=== PATIENT | male | born 1985 | race Caucasian/White ===

== ENCOUNTER 2018-10-21 11:58 | Inpatient (IN) ==
[2018-10-21] MEDS ORDERED: LOPRESSOR IV ONE (12:11)
[2018-10-21] MEDS ORDERED: ATIVAN ONE (12:20)
[2018-10-21] MEDS ORDERED: ATIVAN IV ONE (12:25)
[2018-10-21] MEDS ORDERED: MAGNESIUM SULFATE 4 GM/S.W.I. 4 GM/100 ML IVPB IV ONE (12:25)
[2018-10-21] MEDS ORDERED: M.V.I.-12 10 ML, FOLIC ACID 1 MG, MAGNESIUM SULFATE 1 GM, THIAMINE 100 MG in NS 1,000 ML IV ONE (12:41)
[2018-10-21 12:52] LABS: BASO# 0.08 X1000 (0.0-0.2); BASO% 0.4 % (0.0-0.8); EOS# 0.01 X1000 (0.0-0.7); EOS% 0.1 % (0.0-10.0); HEMATOCRIT 48.2 % (42.0-52.0); HEMOGLOBIN 16.9 g/dL (14.0-18.0); IMM GRAN# 0.06 X1000 (0.0-0.04); IMM GRAN% 0.3 % (0.0-0.5); LYMPH# 1.56 X1000 (1.2-3.4); LYMPH% 8.6 % (20.5-51.1); MCH 31.1 PG (27-31); MCHC 35.1 g/dL (33-37); MCV 88.6 FL (81-99); MONO# 1.54 X1000 (0.11-0.59); MONO% 8.5 % (1.7-9.3); MPV 10.9 FL (7.4-10.4); NEUT# 14.85 X1000 (1.4-6.5); NEUT% 82.1 % (42.2-75.2); PLT 75 X1000 (130-400); RBC 5.44 XMIL (4.7-6.1); RDW 12.4 % (11.5-14.5)
[2018-10-21 12:57] LABS: ESTIMATED GFR > 60
[2018-10-21 13:01] LABS: SODIUM 135 mmol/L (136-145)
[2018-10-21 13:02] LABS: AGAP 35; ALB/GLOB RATIO 1.7; ALBUMIN 5.4 g/dL (3.5-5.0); ALKALINE PHOSPHATASE 98 U/L (32-122); BUN 8 mg/dL (8-22); CALCIUM 10.2 mg/dL (8.8-10.2); CHLORIDE 89 mmol/L (98-107); COSMO 278; CREATININE 1.2 mg/dL (0.7-1.2); GLUCOSE 262 mg/dL (70-104); GOT 507 U/L (10-34); GPT 511 U/L (10-44); MAGNESIUM 2.5 mg/dL (1.5-2.7); POTASSIUM 3.2 mmol/L (3.5-5.1); TCO2 11 mmol/L (25-35); TOTAL BILIRUBIN 1.44 mg/dL (0.20-1.00); TOTAL PROTEIN 8.5 g/dL (6.3-8.3)
[2018-10-21 13:06] LABS: T4 5.29 ug/dL (4.60-12.00); TSH 0.78 uIUmL (0.27-4.20)
--- NOTE | 2018-10-21 13:09 | Diag Imaging Result Doc PS360 ---
EXAM: SHOULDER-RIGHT INDICATION: seizure TECHNIQUE: 2 views COMPARISON: None. FINDINGS: There is a chronic appearing deformity at the greater tuberosity of the proximal humerus that may have been from previous dislocations. There are vague soft tissue heterotopic calcifications adjacent to this. There is no definite acute fracture, dislocation, or intrinsic osseous lesion, otherwise. IMPRESSION: Chronic appearing changes as described. No definite acute pathology by plain radiograph. Electronically signed by Trey Castaneda 10/21/2018 1:07 PM
--- NOTE | 2018-10-21 13:11 | Diag Imaging Result Doc PS360 ---
EXAM: ELBOW 2 VIEWS RIGHT INDICATION: seizure TECHNIQUE: 2 views COMPARISON: None. FINDINGS: There is no discrete fracture, dislocation, or significant intrinsic osseous lesion. The visualized joint spaces are essentially unremarkable. There is mild soft tissue edema overlying the olecranon process. IMPRESSION: Mild soft tissue edema but no definite acute osseous abnormality. Electronically signed by Trey Castaneda 10/21/2018 1:08 PM
[2018-10-21] MEDS ORDERED: ROCEPHIN 1 GM in NS 50 ML IV ONE (13:22)
[2018-10-21] MEDS ORDERED: NS 1,000 ML IV ONE (13:23)
[2018-10-21 13:35] LABS: URINE SOURCE CLEAN CATCH
[2018-10-21 13:48] LABS: BILIRUBIN URINE NEGATIVE (NEGATIVE); BLOOD URINE LARGE (NEGATIVE); COLOR YELLOW; GLUCOSE URINE TRACE mg/dL (NEGATIVE); KETONE URINE 60 mg/dL (NEGATIVE); LEUKOCYTES URINE NEGATIVE (NEGATIVE); NITRITE URINE NEGATIVE (NEGATIVE); PROTEIN URINE 300 mg/dL (NEGATIVE); SP GRAVITY URINE 1.015; TURBIDITY URINE CLEAR (CLEAR); UROBILINOGEN URINE NORMAL (NORMAL)
[2018-10-21 13:50] LABS: UR EPITHELIAL CELLS <10 /HPF (<10); URINE BACTERIA NEGATIVE /HPF; URINE RBC <10 /HPF (<10); URINE WBC <10 /HPF (<10)
[2018-10-21 13:54] LABS: BLOOD TYPE ARTERIAL; SAMPLE BLOOD
[2018-10-21 13:55] LABS: ALLEN TEST YES; BE -6.4 mmoll (-3.0-3.0); HCO3-(ACT) 19.9 mmoll (20.0-26.0); METHB 1.1 % (0.0-1.5); O2HB 96.7 % (95.0-99.0); PCO2(98.6) 29 mmHg (35-45); PO2(98.6) 106 mmHg (60-100); SAO2 99.6 % (95.0-100.0); THB 16.1 g/dL (11.5-17.4); pH(98.6) 7.38 (7.35-7.45)
[2018-10-21 13:56] LABS: MODALITY CANNULA
[2018-10-21 14:04] LABS: UR AMPHETAMINES QUAL NONE DETECTED (NONE DETECT); UR BARBITUATES QUAL NONE DETECTED (NONE DETECT); UR BENZODIAZEPIN QUAL NONE DETECTED (NONE DETECT); UR CANNABINOIDS QUAL NONE DETECTED (NONE DETECT); UR COCAINE QUAL NONE DETECTED (NONE DETECT); UR METHADONE QUAL NONE DETECTED (NONE DETECT); UR OPIATES QUAL NONE DETECTED (NONE DETECT); UR OXYCODONE QUAL NONE DETECTED (NONE DETECT); UR PCP QUAL NONE DETECTED (NONE DETECT)
--- NOTE | 2018-10-21 15:25 | PROVIDER DOCUMENTATION ---
This chart was entered by Tana Bernal Scribe, acting as scribe for Tiffanie Carmichael MD. HPI-Neurological Disorder - General Chief Complaint: Seizure Stated Complaint: AMS Time Seen by Provider: 10/21/18 12:06 Source: patient, EMS Unable to obtain history due to:: altered Allergies/Adverse Reactions: Patient Allergies Allergy/AdvReac Type Severity Reaction Status Date / Time No Known Allergies Allergy Verified 10/21/18 12:33 Home Medications: Home Medication List Medication Instructions Recorded Confirmed Last Taken Type NK [No Home Medications] 10/21/18 10/21/18 Unknown History - History of Present Illness-Neuro Nature of Presenting Problem: 32 yowm presents to the ed via ems from a liquor store. pt admits to a daily drinker and sts has no hx of seizures. pt has new onset seizure while at the liquor store and 911 was called by vika. pt had his second seizure while in the er with nurse and dr at bedside. pt c/o rt shoulder pain Onset/Duration: reports: just prior to arrival Timing: reports: improving Context: reports: seizure activity Character of Altered Mental Status: reports: disoriented, confused, seizure activity Any recent trauma/injury?: reports: minor, other (to tongue/rt shoulder and elbow) Cognitive Baseline: alert, oriented x3 Gait Baseline: walks without assistance Associated Symptoms: reports: confusion, fatigue, fever/chills, loss of consciousness, nausea, diaphoretic, seizures, sleepy. 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) Witnessed seizure?: Yes (employee of [employer]) How many seizure episodes?: 2 (x1 at store and x1 in ed) Episode Frequency: no prior episodes Status Epilepticus: No Preceding symptoms/context:: recent alcohol or drug use (drinks daily sts did n ot have alcohol yesterday) Character of Seizure: reports: generalized shaking all over Post-ictal Symptoms: reports: confusion Seizure related injury: bit tongue Review of Systems - Adult - REVIEW OF SYSTEMS - ADULT ROS:: limited per condition Constitutional: reports: see HPI, chills, fever Eyes: reports: no symptoms reported Ears, Nose, Mouth & Throat: reports: no symptoms reported Cardiovascular: denies: chest pain, edema Respiratory: denies: shortness of breath, wheezing Gastrointestinal: reports: see HPI, nausea. denies: vomiting Genitourinary: reports: no symptoms reported Musculoskeletal: reports: no symptoms reported Integumentary: reports: no symptoms reported Neurological: reports: see HPI, seizure Psychiatric: reports: see HPI, alcohol/drug dependence Endocrine: reports: no symptoms reported Hematologic/Lymphatic: reports: no symptoms reported Allergic/Immunologic: reports: no symptoms reported All Other Systems: Reviewed and Negative Past History - Adult - PAST MEDICAL HISTORY-ADULT Review of Records: reports: Old Records Reviewed, Nursing Assessment Review, Medications Reviewed, Social history reviewed & non-contributory. Major Childhood Illnesses: reports: denies history Cardiovascular: reports: denies history Respiratory: reports: denies history Gastrointestinal: reports: denies history Obstetrical/Gynecological: reports: denies history Genitourinary: reports: denies history Musculoskeletal: reports: denies history Hand Dominance: Right Handed Neurological: reports: denies history Psychiatric: reports: denies history Endocrine/Immune: reports: denies history Other Conditions: reports: denies history - PRIOR SURGERIES/PROCEDURES Surgical/Procedure History: reports: reviewed, not pertinent - IMMUNIZATION STATUS Childhood Immunizations: See Nurse Assessment Flu Vaccine: See Nurse Assessment - FAMILY HISTORY Family History: reviewed, not pertinent - SOCIAL HISTORY Smoking: non-smoker Substance Use: alcohol Alcohol Use Frequency: every day Number of drinks per typical drinking period:: 5-10 drinks Living Situation: family Physical Exam- Neurological - Physical Exam-Neuro Exam Limited by: pt is postictal but improving Initial Vital Signs Reviewed: Yes (temp-100.8 HR-175 BP-154/137 RR-22 o@-95% 3LPM) General Appearance: alert, slow to respond, other (confused postictal) HENMT: moist mucous membranes, other (bit tongue during seizure activity) Head Injury: no evidence of injury Neck: non-tender, full range of motion, normal inspection Respiratory: chest non-tender, lungs clear, increased rate (22) Cardiovascular: normal peripheral pulses, tachycardia (175) Abdominal Exam: normal bowel sounds, non tender, soft Lymphatic: no adenopathy Extremity: normal range of motion, no pedal edema, no calf tenderness, normal capillary refill, tenderness (rt shoulder) 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 Neurologic: grossly normal Integumentary: normal color, abrasion(s) (rt elbow), diaphoresis Psych/Mental Status: normal mood/affect, normal thought content, normal thought process, oriented x 3 - Glascow Coma Scale Best Eye Response: (4) open spontaneously Best Verbal Response: (4) confused conversation Best Motor Response: (6) obeys commands Total Glascow Score: 14 Progress - PLAN OF CARE/RESULTS Progress/Plan/Lab Results: Vital Signs - 8 hr 10/21/18 12:24 10/21/18 13:17 10/21/18 14:33 Temperature 100.8 F H 101.0 F H 99.0 F Pulse Rate 175 H 135 H 119 H Respiratory Rate 22 24 24 Blood Pressure 154/137 162/93 151/106 O2 Sat by Pulse Oximetry 95 96 96 Laboratory Results - last 24 hr 10/21/18 10/21/18 10/21/18 12:10 12:15 12:15 WBC 18.10 H RBC 5.44 Hgb 16.9 Hct 48.2 MCV 88.6 MCH 31.1 H MCHC 35.1 RDW Std Deviation 12.4 Plt Count 75 L MPV 10.9 H Immature Gran % (Auto) 0.3 Neut % (Auto) 82.1 H Lymph % (Auto) 8.6 L [place] % (Auto) 8.5 Eos % (Auto) 0.1 Baso % (Auto) 0.4 Immature Gran # (Auto) 0.06 H Neut # (Auto) 14.85 H Lymph # (Auto) 1.56 [place] # (Auto) 1.54 H Eos # (Auto) 0.01 Baso # (Auto) 0.08 Specimen Type Sample Site pH pCO2 pO2 HCO3 Base Excess Oxyhemoglobin ABG O2 Sat (Calculated) ABG O2 Saturation ABG Carboxyhemoglobin ABG Methemoglobin Wei Test A-a O2 Difference Total Hemoglobin Lactate Liter Flow Blood Gas Modality FiO2 % Sodium Potassium Chloride Carbon Dioxide Anion Gap BUN Creatinine Estimated GFR/1.73 m2 BUN/Creatinine Ratio Glucose POC Glucose 219 H Calculated Osmolality Calcium Magnesium Total Bilirubin AST ALT Alkaline Phosphatase Total Protein Albumin Globulin Albumin/Globulin Ratio Plasma Lactate TSH Thyroxine (T4) Urine Source Urine Color Urine Turbidity Urine pH Ur Specific [place] Urine Protein Ur Glucose (Stick) Ur Ketones (Stick) Urine Blood Urine Nitrite Urine Bilirubin Urobilinogen Dipstick Urine Leukocytes Urine WBC (Auto) Urine RBC (Auto) U Epithel Cells (Auto) Urine Bacteria (Auto) Urine Opiates Screen Ur Oxycodone Screen Ur Methadone, Qual Ur Barbiturates Screen Ur Phencyclidine Scrn Ur Amphetamines Screen U Benzodiazepines Scrn Urine Cocaine Screen U Cannabinoids Screen Plasma/Serum Ethyl Alc 10/21/18 10/21/18 10/21/18 12:15 12:15 12:15 WBC RBC Hgb Hct MCV MCH MCHC RDW Std Deviation Plt Count MPV Immature Gran % (Auto) Neut % (Auto) Lymph % (Auto) [place] % (Auto) Eos % (Auto) Baso % (Auto) Immature Gran # (Auto) Neut # (Auto) Lymph # (Auto) [place] # (Auto) Eos # (Auto) Baso # (Auto) Specimen Type Sample Site pH pCO2 pO2 HCO3 Base Excess Oxyhemoglobin ABG O2 Sat (Calculated) ABG O2 Saturation ABG Carboxyhemoglobin ABG Methemoglobin Wei Test A-a O2 Difference Total Hemoglobin Lactate Liter Flow Blood Gas Modality FiO2 % Sodium 135 L Potassium 3.2 L Chloride 89 L Carbon Dioxide 11 L Anion Gap 35 BUN 8 Creatinine 1.2 Estimated GFR/1.73 m2 > 60 BUN/Creatinine Ratio 7 Glucose 262 H POC Glucose Calculated Osmolality 278 Calcium 10.2 Magnesium 2.5 Total Bilirubin 1.44 H AST 507 H ALT 511 H Alkaline Phosphatase 98 Total Protein 8.5 H Albumin 5.4 H Globulin 3.1 Albumin/Globulin Ratio 1.7 Plasma Lactate 15.1 H TSH 0.78 Thyroxine (T4) 5.29 Urine Source Urine Color Urine Turbidity Urine pH Ur Specific [place] Urine Protein Ur Glucose (Stick) Ur Ketones (Stick) Urine Blood Urine Nitrite Urine Bilirubin Urobilinogen Dipstick Urine Leukocytes Urine WBC (Auto) Urine RBC (Auto) U Epithel Cells (Auto) Urine Bacteria (Auto) Urine Opiates Screen Ur Oxycodone Screen Ur Methadone, Qual Ur Barbiturates Screen Ur Phencyclidine Scrn Ur Amphetamines Screen U Benzodiazepines Scrn Urine Cocaine Screen U Cannabinoids Screen Plasma/Serum Ethyl Alc 10/21/18 10/21/18 10/21/18 13:05 13:05 13:45 WBC RBC Hgb Hct MCV MCH MCHC RDW Std Deviation Plt Count MPV Immature Gran % (Auto) Neut % (Auto) Lymph % (Auto) [place] % (Auto) Eos % (Auto) Baso % (Auto) Immature Gran # (Auto) Neut # (Auto) Lymph # (Auto) [place] # (Auto) Eos # (Auto) Baso # (Auto) Specimen Type ARTERIAL Sample Site L RADIAL pH 7.38 pCO2 29 L pO2 106 H HCO3 19.9 L Base Excess -6.4 L Oxyhemoglobin 96.7 ABG O2 Sat (Calculated) 22.0 ABG O2 Saturation 99.6 ABG Carboxyhemoglobin 1.70 ABG Methemoglobin 1.1 Wei Test YES A-a O2 Difference 57.0 Total Hemoglobin 16.1 Lactate 6.90 H* Liter Flow 2.0 Blood Gas Modality CANNULA FiO2 % 28.0 Sodium Potassium Chloride Carbon Dioxide Anion Gap BUN Creatinine Estimated GFR/1.73 m2 BUN/Creatinine Ratio Glucose POC Glucose Calculated Osmolality Calcium Magnesium Total Bilirubin AST ALT Alkaline Phosphatase Total Protein Albumin Globulin Albumin/Globulin Ratio Plasma Lactate TSH Thyroxine (T4) Urine Source CLEAN CATCH Urine Color YELLOW Urine Turbidity CLEAR Urine pH 6.0 Ur Specific [place] 1.015 Urine Protein 300 A Ur Glucose (Stick) TRACE Ur Ketones (Stick) 60 A Urine Blood LARGE A Urine Nitrite NEGATIVE Urine Bilirubin NEGATIVE Urobilinogen Dipstick NORMAL Urine Leukocytes NEGATIVE Urine WBC (Auto) <10 Urine RBC (Auto) <10 U Epithel Cells (Auto) <10 Urine Bacteria (Auto) NEGATIVE Urine Opiates Screen NONE DETECTED Ur Oxycodone Screen NONE DETECTED Ur Methadone, Qual NONE DETECTED Ur Barbiturates Screen NONE DETECTED Ur Phencyclidine Scrn NONE DETECTED Ur Amphetamines Screen NONE DETECTED U Benzodiazepines Scrn NONE DETECTED Urine Cocaine Screen NONE DETECTED U Cannabinoids Screen NONE DETECTED Plasma/Serum Ethyl Alc Orders Category Date Time Status Cardiac Monitoring DIRECTED Care 10/21/18 12:11 Active Seizure Precautions ROUTINE Care 10/21/18 12:[address] HEAD W/O CONTRAST [CT] Stat Exams 10/21/18 13:59 Taken ELBOW 2 VIEWS RIGHT [RAD] Stat Exams 10/21/18 12:35 Completed SHOULDER-RIGHT [RAD] Stat Exams 10/21/18 12:35 Completed ABG [RESP] Routine Lab 10/21/18 13:45 Completed ALCOHOL BLOOD Stat Lab 10/21/18 12:15 Completed BLOOD CULTURE [BLDCUL] Stat Lab 10/21/18 13:25 Received CBC WITH DIFF [HEME] Stat Lab 10/21/18 12:15 Completed COMPREHENSIVE METABOLIC PANEL [CHEM] Stat Lab 10/21/18 12:15 Completed LACTATE, PLASMA [CHEM] Stat Lab 10/21/18 12:15 Completed MAGNESIUM [CHEM] Stat Lab 10/21/18 12:15 Completed T4 Stat Lab 10/21/18 12:15 Completed TSH Stat Lab 10/21/18 12:15 Completed URINALYSIS W/POSS RFLX CULT [URINALYSIS] Stat Lab 10/21/18 13:05 Completed URINE DRUG SCREEN Stat Lab 10/21/18 13:05 Completed 0.9% Sodium Chloride Inj [Ns] 1,000 ml Med 10/21/18 13:23 Discontinued IV 999 mls/hr CefTRIAXONE [Rocephin] 1 gm Med 10/21/18 13:22 Discontinued 0.9% Sodium Chloride Inj [Ns] 50 ml IV NOW Lorazepam [Ativan] Med 10/21/18 12:20 Discontinued 2 mg .ROUTE .STK-MED ONE Lorazepam [Ativan] Med 10/21/18 12:25 Discontinued 2 mg IV NOW ONE Magnesium Sulfate 4 gm/S.w.i. [Magnesium Sulfate 4 gm/S Med 10/21/18 12:25 Discontinued .w.i] 4 gm in 100 ml IV NOW Metoprolol [Lopressor] Med 10/21/18 12:11 Discontinued 5 mg IV NOW ONE Mvi [M.v.i.-12] 10 ml Med 10/21/18 12:41 Discontinued Folic Acid 1 mg Magnesium Sulfate 1 gm Thiamine 100 mg 0.9% Sodium Chloride Inj [Ns] 1,000 ml IV NOW NIH scale not done due to being seizure not CVA Result Diagrams: 10/21/18 12:15 10/21/18 12:15 - REASSESSMENT Reassessment #1 Time Reassessed: 12:37 (pt given Ativan with 2nd seizure in ed) Status: improving Reassessment #2 Time Reassessed: 13:53 (resting in bed) Status: unchanged - EKG 1 Time of EKG reading by physician:: 12:09 EKG Read and Signed by:: Tiffanie Carmichael EKG Interpretation (*Must complete 3 of following elements*): Normal Rate: 166 Rhythm: sinus tachycardia [place]: normal QRS: normal IA Interval: normal ST Wave: normal Prior EKG Comparison: no prior EKG - XRAY 1 XRAY: Right XRAY Study: Shoulder Impression: See EMR Report (EXAM: SHOULDER-RIGHT INDICATION: seizure TECHNIQUE: 2 views COMPARISON: None. FINDINGS: There is a chronic appearing deformity at the greater tuberosity of the proximal humerus that may have been from previous dislocations. There are vague soft tissue heterotopic calcifications adjacent to this. There is no definite acute fracture, dislocation, or intrinsic osseous lesion, otherwise. IMPRESSION: Chronic appearing changes as described. No definite acute pathology by plain radiograph. Electronically signed by Trey Castaneda 10/21/2018 1:07 PM 10/21/18 1307 Interpreting Physician: Trey Castaneda MD Dictated Date/Time: 10/21/18 1307 cc: Tiffanie Carmichael MD; None,PCP) 2 XRAY: Right XRAY Study: Elbow Impression: See EMR Report (EXAM: ELBOW 2 VIEWS RIGHT INDICATION: seizure TECHNIQUE: 2 views COMPARISON: None. FINDINGS: There is no discrete fracture, dislocation, or significant intrinsic osseous lesion. The visualized joint spaces are essentially unremarkable. There is mild soft tissue edema overlying the olecranon process. IMPRESSION: Mild soft tissue edema but no definite acute osseous abnormality. Electronically signed by Trey Castaneda 10/21/2018 1:08 PM 10/21/18 1308 Interpreting Physician: Trey Castaneda MD Dictated Date/Time: 10/21/18 1307 cc: Tiffanie Carmichael MD; None,PCP) - CONSULTS/PCP/HOSPITALIST Notification #1 *Consult/PCP/Hospitalist*: Alannah MARTINEZ Time Discussed: 15:30 Consult Disposition: Admit Departure - Departure Date of Disposition Decision: 10/21/18 Time of Disposition Decision: 15:15 DIAGNOSIS: Alcohol withdrawal, Seizure, Sepsis, Transaminitis Disposition: ADMITTED INPATIENT 09 Certified Medical Emergency: Emergent Condition: Stable Additional Freetext Instructions: ED Follow Up Instructions: You have been treated by a care provider in the Emergency Department. These instructions are being provided to you so you can have an understanding of how to care for yourself upon discharge. Upon discharge from the Emergency Department, you are responsible for making arrangements for follow-up care by a physician of your choice. Take all prescribed medications as directed. Return to the Emergency Department immediately for any new or worsening symptoms. You may call the Physician Referral phone number at [phone] to obtain a list of Physicians who are taking new patients. Referrals and Follow-Ups: None,PCP [Primary Care Provider] - - Critical Care Note This patient required my direct & personal management of CC.: No Attestation - Physician/ SCOTT Attestation Patient care was provided by Advanced Practice Provider:: No The physician spent face to face time with patient:: Yes Advanced Practice Provider documentation review:: Supervising physician onsite and consulted in the evaluation and care of this patient. The physician did have a face to face encounter with the patient. This chart was documented by the indicated scribe, (Tana Bernal Scribe) and accurately reflects the services I performed and decisions made by me, Tiffanie Carmichael MD, as attested by the provider's signature.
--- NOTE | 2018-10-21 15:25 | Diag Imaging Result Doc PS360 ---
CT HEAD W/O CONTRAST - 10/21/2018 INDICATION: seizure COMPARISON: None FINDINGS: There is a small posterior fossa benign arachnoid cyst measuring about 1.8 x 2.2 cm. The ventricles and sulci are normal in size and contour. No intracranial mass or hemorrhage. The skull is intact. The sinuses, mastoids, and middle ears are clear. IMPRESSION: Negative exam. This exam was performed using automated exposure control, adjustment of mA or kV according to patient size, and/or use of iterative reconstruction technique Electronically signed by Yang Pollard 10/21/2018 3:22 PM
--- NOTE | 2018-10-21 15:58 | Diag Imaging Result Doc PS360 ---
CHEST-1 VIEW - 10/21/2018 INDICATION: sepsis protocol COMPARISON: None FINDINGS: The lungs are normally expanded and clear. Heart size and mediastinal contours are normal. No pneumothorax or pleural effusion. IMPRESSION: Negative exam. Electronically signed by Yang Pollard 10/21/2018 3:56 PM
[2018-10-21 16:30] LABS: INR 1.12; PROTIME 15.3 Seconds (11.0-16.0); PTT 25.9 Seconds (22.3-41.8)
[2018-10-21] MEDS ORDERED: NORCO-7.5 PO ONE (16:52)
[2018-10-21 17:27] LABS: CK INDEX 0.5 (0.0-2.5); CK-MB 9.08 ng/mL (0.0-5.0)
[2018-10-21] MEDS ORDERED: ATIVAN IV PRN (17:33)
[2018-10-21] MEDS ORDERED: NORCO-10 PO PRN (17:36)
[2018-10-21] MEDS ORDERED: NORCO-10 PO ONE (17:36)
[2018-10-21] MEDS ORDERED: D5 1/2 NS + KCL 20 MEQ 1,000 ML IV ONE (17:47)
[2018-10-21] MEDS ORDERED: ZOFRAN IV PRN (17:48)
[2018-10-21] MEDS ORDERED: ROCEPHIN 1 GM in NS 50 ML IV SCH (18:00)
--- NOTE | 2018-10-21 18:26 | HISTORY AND PHYSICAL ---
HISTORY OF PRESENT ILLNESS: Mr. Mathew who is a 32-year-old white gentleman comes to the emergency room after he had a seizure this morning, and after the seizure, he injured his right shoulder. Five weeks ago, he had a seizure, and he broke his shoulder. He saw Dr. Fisher who is his regular physician, and he was referred to an orthopedic physician. He saw Dr. Sterling Noe in [place] who prescribed pain medication and did not really do anything as he told the patient that he did not have any displacement. It was somewhat like impacted fracture; hence, he did not need any orthopedic treatment at that time. This morning he hit it hard, and he thought he broke it again; however, the x-ray shows he has not broken the shoulder. He hit his elbow too, and there is some soft tissue edema on the elbow, but he had about 3 seizures today and he is being admitted for further management of the seizures. SOCIAL HISTORY: He drinks alcohol, especially beer, about 4 to 6 beers every day; however, for the last 3 days, he has not been drinking. He says he does not drink any hard liquor. 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 PAST SURGICAL HISTORY: He did not have any previous surgeries. MEDICATION: He does not take any medications. PRIMARY CARE PHYSICIAN: He is Dr. Fisher's patient. REVIEW OF SYSTEMS: Noncontributory except for pain in the right shoulder and right elbow. PHYSICAL EXAMINATION: VITAL SIGNS: Reveal temperature 99 degrees Fahrenheit, pulse 125, respiratory rate 20 per minute, blood pressure 144/99. HEENT: Head normocephalic. Pupils: PERRLA. Fundus examination normal. ENT examination unremarkable. NECK: Supple. JVP normal. There is no evidence of lymphadenopathy, thyroid enlargement, pedal edema, calf tenderness, anemia, cyanosis, or clubbing. Pedal pulses well felt. BREAST: Normal. CHEST: Normal to inspection. LUNGS: Clear on auscultation. CARDIOVASCULAR: PMI in the normal position. Heart sounds normal. No murmur, gallop or rub noted. ABDOMEN: Nondistended. Hernial orifices normal. No guarding, rigidity, free fluid, masses, or organomegaly. Bowel sounds normal. RECTAL: Exam deferred. CENTRAL NERVOUS SYSTEM: Higher functions normal. Patient is not tremulous. Cranial nerves normal. Motor and sensory system examination unremarkable. Deep tendon reflexes normal. Plantars downgoing. MUSCULOSKELETAL: Skull and spine examination normal for age. No cerebellar signs or signs of meningeal irritation. Local motor exam reveals painful movements of the right shoulder. Has minimal swelling on the shoulder as well as on the right elbow. X-ray studies were negative. The movements are painful at the present time. CLINICAL IMPRESSION: History of alcohol dependence and withdrawal for last 3 days. The patient had 3 seizures today. We will try to get the EEG as well as a CT scan of the brain. Get the neurological checks. Admit him to the hospital. cc: Arvind Farnsworth MD MTDD
[2018-10-21] MEDS: NORCO-7.5 PO PRN (22:44)
[2018-10-22] MEDS: D5 1/2 NS + KCL 20 MEQ 1,000 ML IV SCH ×2 (00:29→15:54)
[2018-10-22] MEDS: LABETALOL IV PRN ×2 (04:21→14:43)
--- NOTE | 2018-10-22 07:18 | EKG Report ---
Test Performed on : 10/21/2018 12:09:05 PM Test Reason : ED. NO EKG ORDER FOR MUSE Blood Pressure : / mmHG Vent. Rate : 166 BPM Atrial Rate : 166 BPM P-R Int : 120 ms QRS Dur : 080 ms QT Int : 278 ms P-R-T Axes : 000 066 048 degrees QTc Int : 461 ms Sinus tachycardia. Otherwise normal ECG No previous ECGs available Unconfirmed Result
[2018-10-22 08:17] LABS: AGAP 20; BUN 7 mg/dL (8-22); CALCIUM 9.9 mg/dL (8.8-10.2); CHLORIDE 96 mmol/L (98-107); COSMO 272; CREATININE 0.8 mg/dL (0.7-1.2); ESTIMATED GFR > 60; GLUCOSE 109 mg/dL (70-104); MAGNESIUM 1.8 mg/dL (1.5-2.7); POTASSIUM 3.2 mmol/L (3.5-5.1); SODIUM 137 mmol/L (136-145); TCO2 21 mmol/L (25-35)
[2018-10-22] MEDS ORDERED: NORVASC PO ONE (15:40)
[2018-10-22] MEDS: NORCO-7.5 PO PRN ×2 (16:07→22:53)
[2018-10-22] MEDS ORDERED: M.V.I.-12 10 ML, FOLIC ACID 1 MG, MAGNESIUM SULFATE 1 GM, THIAMINE 100 MG in NS 1,000 ML IV ONE (19:28)
[2018-10-22] MEDS ORDERED: THIAMINE 100 MG in NS 50 ML IV ONE (19:31)
[2018-10-22] MEDS ORDERED: ATIVAN INJ ONE (19:33)
[2018-10-22] MEDS: ATIVAN IV PRN ×2 (20:13→21:38)
[2018-10-22] MEDS: KLOR-CON PO SCH (20:20)
[2018-10-22] MEDS: KEPPRA PO SCH (20:20)
[2018-10-23] MEDS: D5 1/2 NS + KCL 20 MEQ 1,000 ML IV SCH ×2 (01:20→17:11)
[2018-10-23] MEDS: GEODON IM PRN ×3 (02:30→22:46)
--- NOTE | 2018-10-23 04:15 | PROGRESS NOTE ---
DATE: 10/22/2018 SUBJECTIVE: Patient did not have any pain. Delio did not have any seizures. However, he continues to have severe shoulder pain. And shoulder x-ray was unremarkable for any new fractures. He has used orthopedic surgeons [place] of the [place] and will ask his mother if she still wants an opinion from orthopedic surgeon over here. In the meantime, we are going to try to get the EEG and get a neurological opinion about the seizures and put him on Keppra. -0 cc: MD Tony Jaramillo MD
[2018-10-23] MEDS: ATIVAN IV PRN ×2 (04:48→13:06)
[2018-10-23 07:17] LABS: BASO# 0.02 X1000 (0.0-0.2); BASO% 0.2 % (0.0-0.8); EOS# 0.07 X1000 (0.0-0.7); EOS% 0.8 % (0.0-10.0); HEMATOCRIT 42.1 % (42.0-52.0); HEMOGLOBIN 14.4 g/dL (14.0-18.0); LYMPH# 0.85 X1000 (1.2-3.4); LYMPH% 9.3 % (20.5-51.1); MCH 31.3 PG (27-31); MCHC 34.2 g/dL (33-37); MCV 91.5 FL (81-99); MONO# 0.96 X1000 (0.11-0.59); MONO% 10.5 % (1.7-9.3); MPV 12.3 FL (7.4-10.4); NEUT# 7.28 X1000 (1.4-6.5); NEUT% 79.2 % (42.2-75.2); PLT 58 X1000 (130-400); RDW 12.6 % (11.5-14.5); WBC 9.18 X1000 (4.8-10.8)
[2018-10-23 07:33] LABS: AGAP 21; BUN 9 mg/dL (8-22); CALCIUM 9.2 mg/dL (8.8-10.2); CHLORIDE 97 mmol/L (98-107); COSMO 273; CREATININE 0.6 mg/dL (0.7-1.2); ESTIMATED GFR > 60; GLUCOSE 80 mg/dL (70-104); POTASSIUM 3.5 mmol/L (3.5-5.1); SODIUM 138 mmol/L (136-145); TCO2 20 mmol/L (25-35)
[2018-10-23] MEDS: NORVASC PO SCH (11:13)
[2018-10-23] MEDS: KEPPRA PO SCH ×2 (11:13→22:46)
[2018-10-23] MEDS: KLOR-CON PO SCH ×2 (11:13→22:44)
--- NOTE | 2018-10-23 13:38 | CONSULTATION ---
DATE OF CONSULTATION: 10/23/2018 HISTORY OF PRESENT ILLNESS: Mr. Mathew is a young man with history of episodes consistent with seizure, most consistent with alcohol withdrawal etiology. History from the patient is that first spell occurred about 3 years ago. He remembers being in the shower, suddenly noticing his hands were feeling stiff, and he next realized he was on the floor with roommate checking on him. By report, roommate noticed generalized jerking movement. Episode resolved spontaneously. He is not sure about tongue biting then. There was no evidence of incontinence. He did not seek medical attention immediately. Next spell was about 5 weeks ago. 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 He had apparently fallen and injured his shoulder. There was reported to be generalized jerking movement. He had orthopedic evaluation for the shoulder injury. Two days ago, mother heard commotion and found him with generalized jerking movement. Mother is a nurse, has witnessed many seizures, and reports episode appeared to be typical generalized clonic episode. There was tongue biting. There was no incontinence. This resolved spontaneously. There was never a focal neurologic feature. He had a few more similar episodes witnessed in the last 48 hours. He presented to the hospital. He has had lorazepam 1 mg once today and once yesterday. He was started on levetiracetam 500 mg b.i.d., and he has tolerated that. Noncontrast CT of the head is unremarkable. There is evidence of an old small benign arachnoid cyst in the posterior fossa. He reports not being aware of that in the past, but he is not certain about any prior brain imaging. Labs showed WBC of 18,000, down to 9000. Sodium was 135 and corrected to 138. Blood sugar was 262 and then 80. CK was elevated at 1952. Liver enzymes are elevated. Lactate was elevated at 6.9. Urine drug screen was all negative. Serum ethanol was none detected. He had temperature of 101 earlier and has been afebrile since then. Systolic blood pressures were 150s to 160s earlier, mostly 130s recently. Heart rate was recorded 175 and then 100s to 130s. PHYSICAL EXAMINATION: Mr. Mathew is in limb restraints. He is awake, alert, attentive, oriented. Speech is not dysarthric. Language function is intact on bedside testing. Head and neck are unremarkable. There is no meningismus. He has full visual grace tested grossly by confrontational finger counting. Extraocular movements were full. Facial motility is symmetric. Gag is intact. Tongue is midline. Hearing is good. There is good pinprick appreciation over the limbs and over the face. I did not test proprioception. He has normal power in the arms and legs. I did not test the right arm power proximally vigorously. Tone is symmetric in the arms. He did rapid alternating movements well with the left and the right hand. He did well on finger to nose testing bilaterally, allowing for inability to comfortably raise the right arm at the shoulder. IMPRESSION: History of several episodes consistent with generalized clonic seizure. Most of these seem to clearly be associated with ethanol withdrawal. I am not certain that every episode has that etiology, but that explanation seems most likely. I encouraged him to consider ethanol abstinence or at least to moderate his ethanol intake. We discussed the [place] laws as it pertains to driving, and he understands his responsibility. Further, I suggested that he not work as a second class welder and not get into any situation in which a seizure might result in serious injury to him or to someone else until we see that these episodes are controlled. We discussed possibility that if all episodes are related to ethanol, he might do well with ethanol abstinence and then may not require care home medicine for seizure control. At this point, I would continue levetiracetam at the current low dose and consider stopping that in 6 months or so. I will be glad to see him as an outpatient if needed. Thanks for asking Neurology to see Mr. Mathew. cc: MD Tony Urbina III, MD MTDD
--- NOTE | 2018-10-23 14:48 | EEG REPORT ---
DATE: 10/22/2018 INDICATIONS: This is a digitally recorded EEG done portably on a 32-year-old patient with apparent recent seizures, most likely related to ethanol withdrawal. FINDINGS: During waking, low amplitude polymorphic and rhythmic theta are present across the hemispheres symmetrically. There was not sustained posterior dominant rhythm identified. There is low amplitude beta at 15 hertz to 20 hertz centrally at times. There was no variation to correlate with drowsing or sleep. Photic stimulation did not significantly alter the record. Hyperventilation produced slight symmetric slowing. No definite epileptiform discharge was identified. INTERPRETATION: Abnormal EEG because of mild generalized slowing. CORRELATION: This is indicative of a diffuse encephalopathy and is nonspecific. These findings are minimal. Beta rhythm is typical benzodiazepine effect. The absence of epileptiform discharges on a single EEG does not exclude a clinical diagnosis of seizures, but there is nothing on this record to document the presence of a longer-term seizure disorder. cc: MD Arvind Urbina III, MD Bharat K. Vakharia, MD
[2018-10-23] MEDS: STERILE WATER INJ. INJ PRN (16:12)
[2018-10-23] MEDS ORDERED: ATIVAN IV ONE (16:21)
[2018-10-23] MEDS: LIBRIUM PO SCH ×2 (16:45→22:45)
[2018-10-24] MEDS: ATIVAN IV PRN ×5 (01:40→21:57)
[2018-10-24] MEDS: NORCO-7.5 PO PRN ×3 (01:40→20:18)
[2018-10-24] MEDS: LIBRIUM PO SCH ×4 (05:49→20:17)
[2018-10-24] MEDS: D5 1/2 NS + KCL 20 MEQ 1,000 ML IV SCH ×2 (05:51→18:12)
[2018-10-24 07:45] LABS: BASO# 0.04 X1000 (0.0-0.2)
[2018-10-24 08:09] LABS: ESTIMATED GFR > 60
[2018-10-24] MEDS: KEPPRA PO SCH ×2 (08:17→20:18)
[2018-10-24] MEDS: KLOR-CON PO SCH ×2 (08:18→20:18)
[2018-10-24] MEDS: M.V.I.-12 10 ML, FOLIC ACID 1 MG, MAGNESIUM SULFATE 1 GM, THIAMINE 100 MG in NS 1,000 ML IV SCH (08:19)
[2018-10-24] MEDS: NORVASC PO SCH (08:19)
[2018-10-24 08:28] LABS: BASO% 0.3 % (0.0-0.8); EOS# 0.06 X1000 (0.0-0.7); EOS% 0.5 % (0.0-10.0); HEMOGLOBIN 15.1 g/dL (14.0-18.0); LYMPH# 1.02 X1000 (1.2-3.4); LYMPH% 8.9 % (20.5-51.1); MCH 31.5 PG (27-31); MCHC 33.6 g/dL (33-37); MCV 93.9 FL (81-99); MONO# 1.56 X1000 (0.11-0.59); MONO% 13.6 % (1.7-9.3); MPV 11.5 FL (7.4-10.4); NEUT# 8.76 X1000 (1.4-6.5); NEUT% 76.7 % (42.2-75.2); PLT 98 X1000 (130-400); RBC 4.79 XMIL (4.7-6.1); WBC 11.44 X1000 (4.8-10.8)
[2018-10-24 08:30] LABS: AGAP 30; BUN 12 mg/dL (8-22); CALCIUM 10.1 mg/dL (8.8-10.2); CHLORIDE 100 mmol/L (98-107); COSMO 280; GLUCOSE 74 mg/dL (70-104); POTASSIUM 3.8 mmol/L (3.5-5.1); SODIUM 141 mmol/L (136-145); TCO2 11 mmol/L (25-35)
--- NOTE | 2018-10-24 13:37 | PROGRESS NOTE ---
DATE: 10/24/2018 VITAL SIGNS: Stable with temperature 98.7 degrees, heart rate 116, respirations 16, blood pressure 122/78, O2 saturation on room air 98%. LABORATORY: Hemoglobin 15.1, hematocrit 45.0, white blood count 11,400. Sodium 141, potassium 3.8, BUN 12, creatinine 1.0, glucose 74. The patient has had no further seizures. He seems more calm and is able to carry on a reasonable conversation this morning. Chest is clear. Dr. Castillo was consulted and believes his seizures were related to alcohol usage and withdrawal. The patient is encouraged to avoid alcohol. Apparently this is his 1st hospitalization for alcohol-related problems. He had some seizures several months ago however and injured his right shoulder. He went to orthopedist physician in [place] and was told he had an impacted fracture but no surgery or definitive treatment was done. He was having worsening of DTs yesterday and Librium and Ativan were added. PLAN: Increase activity. Restraints will be removed as possible. cc: MD Tony Carolina MD
[2018-10-24] MEDS: STERILE WATER INJ. INJ PRN (22:59)
[2018-10-24] MEDS: GEODON IM PRN (22:59)
[2018-10-25] MEDS: D5 1/2 NS + KCL 20 MEQ 1,000 ML IV SCH (05:15)
[2018-10-25] MEDS: LIBRIUM PO SCH ×5 (05:15→20:13)
[2018-10-25] MEDS: NORCO-7.5 PO PRN ×2 (05:16→15:55)
[2018-10-25] MEDS: ATIVAN IV PRN (05:16)
[2018-10-25] MEDS: NORVASC PO SCH (10:00)
[2018-10-25] MEDS: KEPPRA PO SCH ×3 (10:00→20:13)
[2018-10-25] MEDS: KLOR-CON PO SCH ×3 (10:00→20:12)
[2018-10-25] MEDS ORDERED: ATIVAN PO PRN (10:02)
--- NOTE | 2018-10-25 10:24 | PROGRESS NOTE ---
DATE: 10/25/2018 Vital signs stable with temperature 98.8 degrees, heart rate 90, respirations 18, blood pressure 123/89, O2 saturation on room air 100%. The patient is much more alert and has been able to walk with assistance, but is still a little unstable with his gait. He is eating fairly well. IV and IV medicines were discontinued. IV Ativan was changed to p.o. p.r.n. Librium is continued. He has had no further seizures. Keppra will be continued as an outpatient. The patient may be able to go home tomorrow. cc: MD Tony Carolina MD
[2018-10-25] MEDS: M.V.I.-12 10 ML, FOLIC ACID 1 MG, MAGNESIUM SULFATE 1 GM, THIAMINE 100 MG in NS 1,000 ML IV SCH (10:49)
[2018-10-26] MEDS: NORCO-7.5 PO PRN ×2 (04:03→09:09)
[2018-10-26] MEDS: LIBRIUM PO SCH ×2 (04:03→08:38)
[2018-10-26 08:09] VITALS: BP 136/85
[2018-10-26] MEDS: NORVASC PO SCH (08:38)
[2018-10-26] MEDS: KEPPRA PO SCH (08:38)
[2018-10-26] MEDS: KLOR-CON PO SCH (08:39)
[2018-10-26] MEDS: M.V.I.-12 10 ML, FOLIC ACID 1 MG, MAGNESIUM SULFATE 1 GM, THIAMINE 100 MG in NS 1,000 ML IV SCH (08:40)
--- NOTE | 2018-10-26 09:20 | PROGRESS NOTE ---
DATE: 10/26/2018 SUBJECTIVE: Mr. Mathew is awake, alert, attentive, much more calm and appropriate than when I saw him 3 days ago. He has not had seizure recognized here. I encouraged him to take his medicines as directed. We reviewed his levetiracetam dose. I will be glad to see him as an outpatient, if needed. Thanks for asking Neurology to see Mr. Mathew. cc: MD Tony Urbina III, MD
--- NOTE | 2018-10-26 10:09 | DISCHARGE SUMMARY ---
ADMISSION DATE: 10/21/2018 DISCHARGE DATE: 10/26/2018 FINAL DISCHARGE DIAGNOSIS: 1. Seizure disorder. 2. Right shoulder pain and right elbow pain. 3. Hypertension. 4. Hypokalemia improved. 5. Rhabdomyolysis . HOSPITAL COURSE: Ms. Mathew is a 32-year-old, white gentleman, admitted with generalized tonic clonic seizure. The patient was drinking alcohol daily. Last 2 to 3 days he did not drink any alcohol. The patient evaluated in the ER. Patient also had a fall. The patient had shoulder and elbow pain. X-ray did not show any fracture the patient was admitted for further care. The patient was treated with appropriate treatment. The patient is doing better. Neurology consult obtained with Dr. Castillo. Clinically patient is doing better. He still has pain in the right shoulder with limited mobility. He denied any hallucinations. Blood pressure is staying high at times, partially due to pain. PHYSICAL EXAMINATION: His vital signs noted. Neck is supple. No jugular venous distention. Lungs clear. Heart regular. Movement of right shoulder limited. COMPLIANCE LEAD: Alert, awake able to move all 4 limbs. Overall patient is doing better. LABORATORY DATA: Lab data done on October 24: Potassium 3.8, sodium 141. Chloride 100. BUN was 12, creatinine was 1. Magnesium 1.8. DISPOSITION: Overall patient is doing better. I had lengthy discussion with patient about alcohol cessation. I offered him inpatient help. Patient declines. Encouraged him to attend AA meeting, stop alcohol seizure precaution. Advised him to follow doctor Castillo's recommendation about driving, not to engage in any activity which is harmful to him and somebody else. I gave him a few pain medicine, will continue Keppra. I gave him some Librium and Norvasc. Follow up with orthopedic surgeon for right shoulder pain. Follow up with me in a week. I told him if he continued to drink I will not be able to see him back in the office. [id number] thiamine daily. Monitor blood pressure at home. DISCHARGE CONDITION: Overall discharge condition satisfactory. cc: Tony Fisher MD
== END 2018-10-26 10:17 | disposition home or self-care (01) | DRG 897 ==
LOC: SUPCPDRO → ED 11:58 → 3N 18:27
PROVIDERS: ADMIT Internal Medicine; ATTEND Internal Medicine
CPT/HCPCS: 70450; 71010; 71045; 73030; 73070; 80048; 80053; 80101; 80301; 80307; 80320; 80324; 80345; 80346; 80353; 80358; 80361; 80365; 81001; 82055; 82550; 82553; 82805; 82948; 83605; 83735; 83992; 84436; 84443; 84484; 85025; 85610; 85730; 87040; 93005; 94761; 95816; A9270; G0431; G0434; G0479; G0480; G6040; J0696; J2060; J3411; J3475; J3480; J3486; J7030; XXXXX